=== PATIENT | female | born 1985 | race Caucasian/White ===

== ENCOUNTER 2024-11-11 08:22 | Emergency (ER) | payer OTHER, SELFPAY ==
[2024-11-11 08:33] VITALS: BP 140/83
--- NOTE | 2024-11-11 10:32 | ED.GENMED ---
History of Present Illness
General
Chief Complaint: Abdominal Symptoms
Source: patient
Exam Limitations: none
Time Seen by Provider: 11/11/24 10:25
History of Present Illness
History of Present Illness:
See MDM
Past History
Past History
ED Past Medical History: None
ED Past Surgical History: None
Social History
Tobacco: Non-smoker
Alcohol: None
Phy Exam
Physical Exam
Physical Exam:
See MDM
Course
Orders/Labs/Results
Orders:
Orders
11/11/24 10:30
Fluconazole [Diflucan] 150 mg PO NOW STA
Ketorolac [Toradol] 30 mg IM NOW STA
11/11/24 10:31
CT Abd/pel Without Iv Or Oral Urgent
Comment:
Reason For Exam: R flank radiating to RLQ
Test Result ONCE
11/11/24 10:40
HCG, Urine Qualitative Screen Urgent
Date Specimen was Collected: 11/11/24
Time Specimen was Collected: 10:32
Urinalysis Reflex To Culture Urgent
Date Specimen was Collected: 11/11/24
Time Specimen was Collected: 10:32
Urine Microscopic Reflex Cult Urgent
Abnormal Lab Results
11/11/24
10:40
Ur Occult Blood Reflex 3+ A
(Negative)
Urine RBC 7-10 A /HPF
(0-2)
Urine Bacteria (Reflex) Few A
(Negative)
Vital Signs
Initial and Last Documented VS:
Initial Vital Signs
Temp Pulse Resp BP Pulse Ox
98.4 F 90 16 140/83 98
11/11/24 08:33 11/11/24 08:33 11/11/24 08:33 11/11/24 08:33 11/11/24 08:33
Last Documented Vital Signs
Temp Pulse Resp BP Pulse Ox
98.4 F 69 18 134/80 99
11/11/24 08:33 11/11/24 12:10 11/11/24 12:10 11/11/24 12:10 11/11/24 12:10
MDM/Problems Addressed
Differential Diagnosis Includes:
HPI and MDM Narrative:
39-year-old female presenting with right flank pain and vaginal discharge. The vaginal discharge was treated with Diflucan last week and it completely resolved. She was concerned because returned and she now has abdominal pain. She was initially
concerned about possible appendicitis as well given the right lower quadrant but she states it is not reproducible. She initially had intermittent back pain that is now radiating to the right lower quadrant. On exam, she has no abdominal or back
tenderness. Given the back pain radiating to the right flank, we discussed the possibility of kidney stone. Will obtain urinalysis, CT abdomen/pelvis and will give dose of Diflucan
Physical exam
General: Well appearing and non-toxic
HEENT: protecting airway
Neck: appears supple
CV: No evidence of cyanosis
Resp: No accessory muscle use
Abd: Non-distended. Nontender
Extremities: No deformities
Neuro: alert
Psych: Normal affect
Skin: Intact
Problems Addressed including Acute and Chronic Conditions affecting care:
1. Flank pain
Acuity: acute
Prognosis: stable
Details: Will obtain CT to rule out acute appendicitis
2. Vaginal discharge
Acuity: acute
Prognosis: stable
Details: Given that Diflucan resolved the discharge, will give another dose and treat as BV
Updates
CT confirms right-sided kidney stones but no obstructive uropathy. She does have evidence of hematuria. It is possible that she recently passed a stone. Regardless, there is no other pathology noted in the CT. Appendix appears normal and there
is no evidence of ovarian cyst. Discussed return precautions
Differential Diagnosis (but not limited to): BV, acute appendicitis, pyelonephritis, kidney stone
Testing considered: CT with contrast
Drug therapy (if applicable): OTC meds, please see d/c instruction regarding Rx drugs
Amount and/or Complexity of Data Reviewed
Clinical info obtained from: Patient
External data reviewed: N/A
Labs I independently reviewed (but not limited to): Hematuria
Radiology: The CT scan was personally and independently reviewed. In addition, official CT report reviewed.
Pulse Ox: not hypoxic
EKG independently reviewed: N/A
[employer] Application Developer: N/A
Critical Care: N/A
Risk of Complication:
Social Determinants of health: Good social support
Discussed with other providers: N/A
Escalation of Care includes Admit/Obs: After being observed in the Emergency Department, pt stable for discharge.
Occasional wrong word or 'sound a like' substitutions may have occurred due to the inherent limitations of voice recognition software. Read the chart carefully and recognize, using context, where substitutions have occurred.
*Critical Care Note
Total Time (30-74mins, 75-104mins- exclusive of procedures): Not Applicable
ED Attending Note
-
Portions of this chart may have been created with voice recognition software.� Occasional wrong word or��sound alike� substitutions may have occurred due to the inherent limitations of voice recognition software.
Discharge Plan
Departure
Patient Disposition: Home (Routine Discharge)
Date of Disposition: 11/11/24
Time of Disposition: 12:39
Patient with high blood pressure during this ER visit?: No
Discharge Problem:
Acute flank pain, Kidney stone on right side, Bacterial vaginosis
Prescriptions:
New
diclofenac potassium 50 mg tablet
50 mg PO BID Qty: 20 0RF
Referrals:
Swapna Kong MD [Family Provider] -
Activity Restrictions/Additional Instructions:
Please return for any worsening symptoms.
You may return at any time if you have further concerns.
It is not certain what is causing your pain. You do have a kidney stone on the right but it is not blocking the flow of urine. It is possible he may have passed a stone given the blood in your urine.
Please follow up with your doctor at the first available appointment, preferably this week.
Thank you for choosing [facility].
Interventions
Interventions:
*Risk Screen - Suicide Last Done: 11/11/24 08:33
*General Assessment Last Done: 11/11/24 10:44
*Neglect/Abuse Screening Last Done: 11/11/24 08:33
ED- Fall Risk Assessment Last Done: 11/11/24 10:59
*ED COVID-19 Vaccine History Last Done: 11/11/24 10:44
FU-Sgtzda-Bfxtztvwro Assessment Last Done: 11/11/24 10:59
Discharge Date and Time
Print Language: MONEGASQUE
[2024-11-11] MEDS: TORADOL 30 MG IM (10:41)
[2024-11-11 10:44] VITALS: BMI 27.0
[2024-11-11 10:46] VITALS: BP 135/89
[2024-11-11 11:03] LABS: HCG, Urine Qualitative Screen Negative
[2024-11-11 11:14] LABS: Urine Albumin Negative (Neg - Trace); Urine Bilirubin Negative (Negative); Urine Character Clear (Clear); Urine Color Yellow; Urine Glucose Negative (Negative); Urine Ketone Negative (Negative); Urine Leukocyte Negative (Negative); Urine Nitrite Negative (Negative); Urine Occult Blood 3+ (Negative); Urine Specific Gravity 1.015 (<1.030); Urine Urobilinogen Negative (Neg - 1+)
[2024-11-11] MEDS: DIFLUCAN 150 MG PO (11:22)
[2024-11-11 12:02] LABS: Urine Squamous Cell 26-30 /LPF (Few); Urine Urothelial Cell 0-2 /LPF (FEW)
[2024-11-11 12:03] LABS: Urine Bacteria Few (Negative); Urine White Cell 0-2 /HPF (0-5)
[2024-11-11 12:10] VITALS: BP 134/80
== END 2024-11-11 12:49 | disposition home or self-care (01) ==
LOC: EMR 08:22
PROVIDERS: EMERGENCY PHYSICIAN Student in an Organized Health Care Education/Training Program; FAMILY PHYSICIAN Emergency Medicine
DX: N20.0 Calculus of kidney (principal); N76.0 Acute vaginitis; B96.89 Other specified bacterial agents as the cause of diseases classified elsewhere
CPT/HCPCS: 96372; 99284; 74176; 81003; 81015; 81025

== ENCOUNTER → 2024-12-09 07:38 | Outpatient (REF) | payer OTHER, SELFPAY | LOC: HWRAD 07:38 | PROVIDERS: ATTENDING PHYSICIAN Emergency Medicine | DX: R10.9 Unspecified abdominal pain (principal); R10.2 Pelvic and perineal pain | CPT/HCPCS: 76770; 76830; 76856 ==

== ENCOUNTER → 2024-12-16 11:53 | Outpatient (REF) | payer OTHER, SELFPAY | LOC: MRI 3T 11:53 | PROVIDERS: ATTENDING PHYSICIAN Emergency Medicine | DX: N83.8 Other noninflammatory disorders of ovary, fallopian tube and broad ligament (principal) | CPT/HCPCS: 72197; A9575 ==

== ENCOUNTER → 2025-02-07 08:06 | Outpatient (REF) | payer OTHER, SELFPAY | LOC: HWRAD 08:06 | PROVIDERS: ATTENDING PHYSICIAN Obstetrics & Gynecology; FAMILY PHYSICIAN Emergency Medicine | DX: N83.291 Other ovarian cyst, right side (principal) | CPT/HCPCS: 76830; 76856 ==